=== PATIENT | female | born 1990 | race Two or more races ===

== ENCOUNTER 2024-07-12 22:21 | Observation (INO) | payer MEDICAID, SELFPAY ==
[2024-07-12] VITALS (17 sets, daily range): PULSE 78–96; O2SAT 98–100; BMI 31.4
[2024-07-13] VITALS (128 sets, daily range): BP systolic 90–106; BP diastolic 50–67; PULSE 72–119; RESP 17–18; TEMP 36.6–37; O2SAT 91–100; BMI 31.6
[2024-07-13] MEDS: RINGERS LACTATED 1000 ML 1,000 ML 999 ML IV (00:20)
[2024-07-13] MEDS: BETAMET ACET/BETAMET NA PH (Celestone) 6 MG/ML VIAL 12 MG IM (00:31)
[2024-07-13] MEDS: NIFEdipine 10 MG CAPSULE 20 MG PO (00:32)
[2024-07-13] MEDS: RINGERS LACTATED 1000 ML 1,000 ML 100 ML IV (01:31)
[2024-07-13] MEDS: ACETAMINOPHEN 325 MG TABLET 650 MG PO (01:38)
[2024-07-13 02:16] LABS: Amphetamine/Metham Scrn,Ur OB Negative (Negative); Benzoylecgonine Screen, Ur OB Negative (Negative); Opiate Screen,Urine OB Negative (Negative); THC Screen,Urine OB Negative (Negative)
[2024-07-13 02:19] LABS: Basophils % (Auto) 0 % (0-2.5); Eosinophils % (Auto) 1 % (0-10); Hematocrit 33.5 % (36.0-46.0); Immature Granulocytes % (Auto) 1 % (0-0); Immature Granulocytes Auto 0.04 Thou/mm3 (0.00-0.00); Lymphocytes % (Auto) 27 % (10-50); Mean Corpuscular HGB Conc 32.8 g/dl (31.0-37.0); Mean Corpuscular Volume 79 fL (80-100); Monocytes # (Auto) 0.5 Thou/mm3 (0.0-0.8); Monocytes % (Auto) 7 % (0-12); Neutrophils # (Auto) 4.8 Thou/mm3 (1.8-7.7); Neutrophils % (Auto) 65 % (37-80); Nucleated Red Blood Cell % 0 /100 WBC (0); Platelet Count 133 Thou/mm3 (140-440); RDW Standard Deviation 41.9 fL (36.4-46.3); Red Blood Count 4.23 Miln/mm3 (4.00-5.20); White Blood Count 7.4 Thou/mm3 (3.6-11.0)
[2024-07-13 02:56] LABS: Alanine Aminotransferase 11 U/L (10-49); Albumin/Globulin Ratio 1.5 (1.2-2.2); Alkaline Phosphatase 80 U/L (46-116); Anion Gap 10 (7-16); Aspartate Amino Transferase 26 U/L (0-34); BUN/Creatinine Ratio 15 Ratio (12-20); Bilirubin,Total 0.2 mg/dL (0.3-1.2); Blood Urea Nitrogen 6 mg/dL (9-23); Calcium 8.6 mg/dL (8.3-10.6); Calcium (Corrected) 8.6 mg/dL (8.5-10.1); Carbon Dioxide 19.4 mMol/L (20.0-31.0); Chloride 106 mMol/L (98-107); Creatinine (Component) 0.4 mg/dL (0.6-1.3); Estimated Creatinine Clearance 197.6 mL/min (>60); Globulin 2.6 gm/dL (2.3-3.5); Glucose 84 mg/dL (74-106); Osmolality,Calculated 266 (275-295); Potassium 4.3 mMol/L (3.4-5.1); Sodium 135 mMol/L (136-145); Syphilis Nonreactive (Nonreactive); Total Protein 6.6 gm/dL (5.7-8.2); Uric Acid 2.7 mg/dL (3.1-7.8); eGFR > 60 See Note
[2024-07-13 03:01] LABS: Fibrinogen 585 mg/dL (175-375); INR 0.9 (0.9-1.3); Prothrombin Time 10.4 Seconds (9.0-12.2)
[2024-07-13] MEDS: NIFEdipine 10 MG CAPSULE PO (06:50)
[2024-07-13] MEDS: metFORMIN 500 MG TABLET PO (07:26)
--- NOTE | 2024-07-13 08:21 | PD.LDANTE ---
Documentation for date of: 07/13/24 OB Labor/Induct. HPI History of Present Adequate Care: Yes Meds Home Medications and Allergies Home Medications ?Medication ?Instructions ?Recorded ?Confirmed ?Type metformin 500 mg tablet 500 mg PO BID 07/12/24 07/12/24 History [id number] fum 65 mg 1 pkg PO 1XD 07/12/24 07/13/24 History iron-folic acid 1 mg-dha 250 mg oral hilda Allergies Allergy/AdvReac Type Severity Reaction Status Date / Time No Known Allergies Allergy Verified 07/13/24 02:19 OB Exam Physical Exam Vital signs: Temp Pulse Resp BP Pulse Ox 98.6 F 91 17 90/50 L 91 L 07/13/24 04:53 07/13/24 08:20 07/13/24 04:53 07/13/24 08:20 07/13/24 08:20 OB Results Labs 07/13/24 00:20 07/13/24 00:20 Labs: Short CBC 07/13/24 Range/Units 00:20 WBC 7.4 (3.6-11.0) Thou/mm3 Hgb 11.0 L (12.0-16.0) g/dL Hct 33.5 L (36.0-46.0) % Plt Count 133 L (140-440) Thou/mm3 BMP 07/13/24 00:20 Sodium 135 L Potassium 4.3 Chloride 106 Carbon Dioxide 19.4 L BUN 6 L Creatinine 0.4 L Glucose 84 Calcium 8.6 Liver Function 07/13/24 Range/Units 00:20 Total Bilirubin 0.2 L (0.3-1.2) mg/dL AST 26 (0-34) U/L ALT 11 (10-49) U/L Alkaline Phosphatase 80 (46-116) U/L Albumin 4.0 (3.5-5.0) gm/dL
== END 2024-07-13 10:20 | disposition home or self-care (01) ==
PROVIDERS: Admitting Provider Obstetrics & Gynecology; PCP Family Medicine; Visit Provider Obstetrics & Gynecology
DX: O47.03 False labor before 37 completed weeks of gestation, third trimester (principal); Z3A.31 31 weeks gestation of pregnancy
CPT/HCPCS: 36415; 59025; 59899; 80053; 80307; 84550; 85025; 85384; 85610; 85730; 86780; 86850; 86900; 86901; 96372; J0702; J7120; A9270

== ENCOUNTER 2024-07-13 22:33 | Observation (INO) | payer MEDICAID, SELFPAY ==
[2024-07-13 22:38] VITALS: BP 102/68; PULSE 74
[2024-07-13] MEDS: BETAMET ACET/BETAMET NA PH (Celestone) 6 MG/ML VIAL 12 MG IM (23:14)
== END 2024-07-13 23:18 | disposition home or self-care (01) ==
PROVIDERS: Admitting Provider Obstetrics & Gynecology; Visit Provider Obstetrics & Gynecology
DX: Z34.83 Encounter for supervision of other normal pregnancy, third trimester (principal); Z3A.32 32 weeks gestation of pregnancy
CPT/HCPCS: 59899; 96372; J0702

== ENCOUNTER 2024-07-19 21:07 | Observation (INO) | payer MEDICAID, SELFPAY ==
[2024-07-19 21:16] VITALS: BMI 30.2
[2024-07-19 21:22] VITALS: BP 113/69; PULSE 101; RESP 17; RESP 99; TEMP 36.5
[2024-07-19 21:40] LABS: ROM Kit Lot # 5780505; ROM Swab Mixed By: BDR; Rupture of Fetal Membranes Negative (Negative); Swb Mxed in Solvent 1 min? Yes
[2024-07-19 21:57] VITALS: TEMP 36.5
== END 2024-07-19 22:50 | disposition home or self-care (01) ==
PROVIDERS: Admitting Provider Obstetrics & Gynecology; PCP Family Medicine; Visit Provider Obstetrics & Gynecology
DX: Z34.83 Encounter for supervision of other normal pregnancy, third trimester (principal); Z3A.32 32 weeks gestation of pregnancy
CPT/HCPCS: 59025; 59899; 84112

== ENCOUNTER 2024-07-20 11:35 | Observation (INO) | payer MEDICAID, SELFPAY ==
[2024-07-20] VITALS (150 sets, daily range): BP systolic 91–121; BP diastolic 53–77; PULSE 79–135; RESP 18–99; TEMP 36.6–37.2; O2SAT 96–100; BMI 29.7
--- NOTE | 2024-07-20 11:54 | XR_ITS ---
Examination: Complete OB ultrasound greater than 14 weeks Date and time of exam: July 20, 2024 12:17 PM Indications: Pelvic pain and vaginal bleeding beginning 7:00 AM this morning Findings: Viable intrauterine single fetus with single amniotic sac presentation cephalic spine maternal left Cardiac motion 155 BPM Placenta fundal anterior no placental abruption grade 1 Umbilical cord insertion seen Amniotic fluid index 9.6 cm Cervix 3.1 cm Ovaries obscured by bowel gas. Composite estimated gestational age based on BPD, head circumference, abdominal circumference, femur length is 31 weeks 3 days Estimated weight 1731 g. Survey of intracranial anatomy, spinal anatomy, abdominal anatomy, four-chamber heart performed with no abnormalities identified. Impression: Viable intrauterine gestation cephalic presentation Placenta fundal anterior no abruption Estimated gestational age 31 weeks 3 days.
--- NOTE | 2024-07-20 11:54 | XR_ITS ---
Examination: OB Transvaginal ultrasound of the pelvis, Limited Technique: Transvaginal sonographic images pelvis performed using dhillon scale imaging Exam date and time: July 20, 2024 12:35 PM Indications: Pelvic pain and vaginal bleeding beginning 7:00 AM today Findings: Cervix 3.3 cm closed Impression: Cervix 3.3 cm closed.
[2024-07-20] MEDS: SODIUM CHLORIDE 0.9% 1000 ML 1,000 ML 999 ML IV (12:42)
[2024-07-20 12:50] LABS: Basophils % (Auto) 0 % (0-2.5); Eosinophils % (Auto) 0 % (0-10); Hematocrit 35.9 % (36.0-46.0); Hemoglobin 11.8 g/dL (12.0-16.0); Immature Granulocytes % (Auto) 0 % (0-0); Immature Granulocytes Auto 0.03 Thou/mm3 (0.00-0.00); Lymphocytes # (Auto) 1.3 Thou/mm3 (1.0-4.8); Lymphocytes % (Auto) 19 % (10-50); Mean Corpuscular HGB Conc 32.9 g/dl (31.0-37.0); Mean Corpuscular Volume 79 fL (80-100); Monocytes # (Auto) 0.4 Thou/mm3 (0.0-0.8); Monocytes % (Auto) 6 % (0-12); Neutrophils % (Auto) 74 % (37-80); Nucleated Red Blood Cell % 0 /100 WBC (0); Platelet Count 208 Thou/mm3 (140-440); RDW Standard Deviation 42.9 fL (36.4-46.3); Red Blood Count 4.54 Miln/mm3 (4.00-5.20); White Blood Count 6.7 Thou/mm3 (3.6-11.0)
[2024-07-20] MEDS: RINGERS LACTATED 1000 ML 1,000 ML 125 ML IV (15:22)
[2024-07-20] MEDS: ACETAMINOPHEN IVPB 1,000 MG/100 ML VIAL 250 MG IV ×2 (15:22→22:58)
--- NOTE | 2024-07-20 16:22 | PD.LDANTE ---
Documentation for date of: 07/20/24 OB Labor/Induct. HPI History of Present Illness : 2 Para: 1 Term pregnancies: 0 pregnancies: 1 Living children: 1 History of Abortions: Spontaneous and Elective: 0 History of Vaginal deliveries: 1 History of sections: No History of : No Date of last menstrual period: 12/02/23 SAV: 09/07/24 Gestational age based on last menstrual period: 33 History of present illness: The patient presents to labor and delivery triage with complaints of contractions and a few episodes of vaginal spotting. She is very concerned due to her history of delivery in the past. She reports contractions every 2 to 4 minutes and good movements. The patient has been seen in triage very frequently in the recent last one to 2 weeks, with the most recent admission being yesterday, where she was monitored with no cervical change and discharged home. She has no other complaints other than those stated above. The patient is being treated as a gestational diabetic. She has been receiving care at [facility]. Diagnostic Test Results and Labs: - Initial labs (04-05-2024): Blood group: A positive Antibody screen: negative HIV screening: negative Hepatitis B: negative Hepatitis C: negative Rubella: immune RPR: nonreactive Urine culture: positive for group B streptococcus - Hemoglobin A1C (04-02-2024): 5.3 - Toxicology screen (Date N/A): negative - NIPT (Date N/A): negative x3, male gender - 2-hour glucose tolerance test (Date N/A): elevated at 156 - Anatomy ultrasound (05-07-2024): Estimated gestational age: consistent with dates Normal anatomy survey Cervical length: >4 cm, no funneling Placenta: fundal, no previa, no abnormalities noted - Blood glucose on admission: 149 History of Present Adequate Care: Yes Review of Systems Review of Systems Systems Reviewed: All systems reviewed, normal except as documented Past Medical History Surgical History SURGICAL: Negative Section Meds Home Medications and Allergies Home Medications ?Medication ?Instructions ?Recorded ?Confirmed ?Type metformin 500 mg tablet 500 mg PO BID 07/12/24 07/19/24 History [id number] fum 65 mg 1 pkg PO 1XD 07/12/24 07/19/24 History iron-folic acid 1 mg-dha 250 mg oral hilda Allergies Allergy/AdvReac Type Severity Reaction Status Date / Time No Known Allergies Allergy Verified 07/19/24 21:47 OB Exam Physical Exam Vital signs: Temp Pulse Resp BP Pulse Ox 98.9 F 82 18 105/64 99 07/20/24 12:23 07/20/24 15:31 07/20/24 12:23 07/20/24 15:31 07/20/24 16:17 Constitutional Constitutional: no acute distress Routine HEENT Exam Head: Present normocephalic and atraumatic Eye: Present EOMI and PERRL ENT: Present mucous membranes moist Routine Neck Exam Neck: Present supple and trachea midline Routine Cardiovascular Exam Cardiovascular: Present RRR Routine Abdominal Exam Abdominal: Present soft and normoactive bowel sounds Detailed Labor and Delivery Exam Comments: Physical Examination: - Cervical exam: 2 to 3 cm dilated, thick - station: high - monitoring: baseline heart rate 145 with accelerations and no decelerations - Contractions: irregular, occurring every 2 to 5 minutes Routine Extremities Exam Extremities: Present full ROM Routine Skin Exam Skin: Present intact, dry and warm Routine Neurological Exam Neurological: Present alert, oriented X3 and CN II-XII intact Routine Psychiatric Exam Psychiatric: Present normal affect and normal thought process OB Results Labs 07/20/24 12:15 Labs: Short CBC 07/20/24 Range/Units 12:15 WBC 6.7 (3.6-11.0) Thou/mm3 Hgb 11.8 L (12.0-16.0) g/dL Hct 35.9 L (36.0-46.0) % Plt Count 208 D (140-440) Thou/mm3 OB Assessment & Plan Assessment and Plan (1) Threatened labor, antepartum: Status: Acute Assessment and plan: Contractions and Threatened Delivery: - Place patient under observation with continuous monitoring. - Administer IV hydration and tocolysis with terbutaline. - Manage pain with IV acetaminophen. - Monitor inpatient for 23 hours, recheck cervix as needed. - Start GBS prophylaxis if active labor occurs. - Current cervical exam: 2-3 cm dilated, thick, high station. - monitoring: baseline 145, with accelerations, no decelerations. - Contractions irregular, every 2-5 minutes. Gestational Diabetes: - Resume home metformin during admission. - Place patient on diabetic diet. - Monitor fingerstick blood glucose levels. - Admission fingerstick blood glucose: 149. Group B Streptococcus Positive: - Start GBS prophylaxis if active labor occurs. - Positive urine culture for GBS. Lung Maturity: - Patient has received betamethasone for lung maturity. History of Delivery: - Closely monitor for signs of labor. - Previous delivery at 32 weeks in 2021.
[2024-07-20] MEDS: TERBUTALINE SULF INJ 1 MG/ML VIAL 0.25 MG SC (17:01)
[2024-07-20] MEDS: metFORMIN 500 MG TABLET PO (19:07)
[2024-07-20] MEDS: SODIUM CHLORIDE 0.9% 1000 ML 1,000 ML 125 ML IV (19:07)
[2024-07-21] VITALS (101 sets, daily range): BP systolic 88–124; BP diastolic 52–78; PULSE 67–147; O2SAT 92–100
[2024-07-21] MEDS: SODIUM CHLORIDE 0.9% 1000 ML 1,000 ML 125 ML IV (03:52)
[2024-07-21] MEDS: ACETAMINOPHEN IVPB 1,000 MG/100 ML VIAL 250 MG IV (05:18)
[2024-07-21] MEDS: TERBUTALINE SULF INJ 1 MG/ML VIAL 0.25 MG SC (06:08)
[2024-07-21] MEDS: metFORMIN 500 MG TABLET PO (07:14)
[2024-07-21] MEDS: NIFEdipine 10 MG CAPSULE PO (11:35)
== END 2024-07-21 11:35 | disposition home or self-care (01) ==
PROVIDERS: Admitting Provider Obstetrics & Gynecology; Visit Provider Obstetrics & Gynecology
DX: O60.03 Preterm labor without delivery, third trimester (principal); O24.410 Gestational diabetes mellitus in pregnancy, diet controlled; O98.813 Other maternal infectious and parasitic diseases complicating pregnancy, third trimester; B95.1 Streptococcus, group B, as the cause of diseases classified elsewhere; O99.820 Streptococcus B carrier state complicating pregnancy; Z3A.31 31 weeks gestation of pregnancy
CPT/HCPCS: 36415; 59899; 76805; 76817; 85025; 96361; 96365; 96372; J0131; J3105; J7030; J7120; A9270

== ENCOUNTER 2024-07-23 11:55 | Outpatient (CLI) | payer MEDICAID, SELFPAY ==
[2024-07-23] VITALS (42 sets, daily range): BP systolic 108; BP diastolic 70; PULSE 72–143; RESP 18–99; TEMP 36.8; O2SAT 92–100; BMI 30.1
[2024-07-23] MEDS: RINGERS LACTATED 1000 ML 1,000 ML 999 ML IV (12:37)
[2024-07-23 12:57] LABS: Basophils % (Auto) 0 % (0-2.5); Eosinophils % (Auto) 0 % (0-10); Hematocrit 34.4 % (36.0-46.0); Hemoglobin 11.5 g/dL (12.0-16.0); Immature Granulocytes % (Auto) 0 % (0-0); Immature Granulocytes Auto 0.03 Thou/mm3 (0.00-0.00); Lymphocytes # (Auto) 1.6 Thou/mm3 (1.0-4.8); Lymphocytes % (Auto) 23 % (10-50); Mean Corpuscular HGB Conc 33.4 g/dl (31.0-37.0); Mean Corpuscular Hemoglobin 26.7 pg (25.0-35.0); Mean Corpuscular Volume 80 fL (80-100); Monocytes # (Auto) 0.4 Thou/mm3 (0.0-0.8); Monocytes % (Auto) 5 % (0-12); Neutrophils # (Auto) 5.2 Thou/mm3 (1.8-7.7); Neutrophils % (Auto) 72 % (37-80); Nucleated Red Blood Cell % 0 /100 WBC (0); Platelet Count 209 Thou/mm3 (140-440); RDW Standard Deviation 42.9 fL (36.4-46.3); Red Blood Count 4.31 Miln/mm3 (4.00-5.20); White Blood Count 7.2 Thou/mm3 (3.6-11.0)
[2024-07-23 13:01] LABS: Collection Type, Urine Clean Catch
[2024-07-23 13:10] LABS: Bilirubin,Urine Negative (Negative); Blood,Urine 1+ (Negative); Clarity,Urine Clear (Clear/Hazy); Color,Urine Yellow (Lt Yel-Yel); Glucose, Urine Negative (Negative); Ketones,Urine Negative (Negative); Leukocyte Esterase,Urine 1+ (Negative); Nitrite,Urine Negative (Negative); PH,Urine 6.5 (5.0-7.0); Protein,Urine Trace (Neg - Trace); Urobilinogen,Urine 0.2 mg/dL (0.0-1.0)
[2024-07-23 13:11] LABS: Bacteria,Urine 1+; RBC,Urine 7 /hpf (0-3); Squamous Epithelial Cell,Urine 2 /hpf (0-5); WBC,Urine 7 /hpf (0-5)
--- NOTE | 2024-07-23 13:45 | XR_ITS ---
Examination: Biophysical profile, ultrasound Date and time of exam: July 23, 2024 1432 hours contractions beginning 10 days ago Technique: Multiple transabdominal sonographic images of the pelvis abdomen obtained. Attention is directed to the breathing movement, gross body movement, amniotic fluid volume and tone. Findings: Amniotic fluid index 10.8 cm Total biophysical profile is 8 of 8. breathing movement is 2. Gross body movement is 2. tone is 2. Qualitative amniotic fluid volume is 2 Impression: Biophysical profile is 8 of 8.
== END 2024-07-23 15:35 | disposition home or self-care (01) ==
LOC: S4S1 11:56 → S4SX 14:17
PROVIDERS: Referring Provider Obstetrics & Gynecology; Visit Provider Obstetrics & Gynecology
DX: O26.893 Other specified pregnancy related conditions, third trimester (principal); M54.50 Low back pain, unspecified; R25.2 Cramp and spasm; Z3A.33 33 weeks gestation of pregnancy
CPT/HCPCS: 36415; 59025; 76819; 81001; 85025; J7120

== ENCOUNTER 2024-08-17 12:14 | Outpatient (RCR) | payer MEDICAID, SELFPAY ==
--- NOTE | 2024-07-27 11:28 | XR_ITS ---
Examination: Biophysical profile, ultrasound Date and time of exam: July 27, 2024 1141 hrs. Indications: Diagnosis gestational diabetes Technique: Multiple transabdominal sonographic images of the pelvis abdomen obtained. Attention is directed to the breathing movement, gross body movement, amniotic fluid volume and tone. Findings: Adequate fluid index 12.0 cm Total biophysical profile is 8 of 8. breathing movement is 2. Gross body movement is 2. tone is 2. Qualitative amniotic fluid volume is 2 Impression: Biophysical profile is 8 of 8.
[2024-07-27 12:39] VITALS: BP 113/74; PULSE 116; RESP 18; TEMP 36.9
--- NOTE | 2024-08-03 11:07 | XR_ITS ---
Examination: Biophysical profile, ultrasound Date and time of exam: August 03, 2024 1127 hours INDICATIONS: Diagnosis gestational diabetes, secondary diagnosis pelvic lower back pain beginning today Technique: Multiple transabdominal sonographic images of the pelvis abdomen obtained. Attention is directed to the breathing movement, gross body movement, amniotic fluid volume and tone. Findings: Amniotic fluid index 12 cm Total biophysical profile is 8 of 8. breathing movement is 2. Gross body movement is 2. tone is 2. Qualitative amniotic fluid volume is 2 Impression: Biophysical profile is 8 of 8.
[2024-08-03 11:59] VITALS: BP 116/77; PULSE 108; RESP 18; TEMP 36.7
--- NOTE | 2024-08-10 11:03 | XR_ITS ---
Examination: Biophysical profile, ultrasound Date and time of exam: August 10, 2024 1139 hours INDICATIONS: Diagnosis gestational diabetes, onset pelvic and lower back pain today Technique: Multiple transabdominal sonographic images of the pelvis abdomen obtained. Attention is directed to the breathing movement, gross body movement, amniotic fluid volume and tone. Findings: Amniotic fluid index 15. CM Total biophysical profile is 8 of 8. breathing movement is 2. Gross body movement is 2. tone is 2. Qualitative amniotic fluid volume is 2 Impression: Biophysical profile is 8 of 8.
[2024-08-10 12:06] VITALS: BP 105/68; PULSE 85; RESP 18; TEMP 36.9
--- NOTE | 2024-08-17 12:26 | XR_ITS ---
Examination: Biophysical profile, ultrasound Date and time of exam: August 17, 2024 1244 hours INDICATIONS: Diagnosis gestational diabetes insulin controlled, diagnosis pelvic pain and pressure beginning 2 weeks ago Technique: Multiple transabdominal sonographic images of the pelvis abdomen obtained. Attention is directed to the breathing movement, gross body movement, amniotic fluid volume and tone. Findings: Amniotic fluid index 12.0 cm Total biophysical profile is 8 of 8. breathing movement is 2. Gross body movement is 2. tone is 2. Qualitative amniotic fluid volume is 2 Impression: Biophysical profile is 8 of 8.
[2024-08-17 13:31] VITALS: BP 110/72; PULSE 96; RESP 18; TEMP 36.8
== END 2024-08-17 23:59 | disposition home or self-care (01) ==
LOC: S4S1 12:14
PROVIDERS: Referring Provider Nurse Practitioner Women's Health; Visit Provider Nurse Practitioner Women's Health
DX: O24.415 Gestational diabetes mellitus in pregnancy, controlled by oral hypoglycemic drugs (principal); Z3A.36 36 weeks gestation of pregnancy
CPT/HCPCS: 59025; 76819

== ENCOUNTER 2024-08-21 22:31 | Inpatient (IN) | payer MEDICAID, SELFPAY ==
[2024-08-21] VITALS (14 sets, daily range): BP systolic 112; BP diastolic 72; PULSE 69–104; RESP 16–99; O2SAT 99–100; BMI 31.0
--- NOTE | 2024-08-21 23:01 | PD.LDHP ---
Documentation for date of: 08/21/24 OB Labor/Induct. HPI History of Present Illness Chief complaint: 33 y/o 37w 4d presents to L&D in early labor ravi 2-4 minutes : 2 Para: 1 Term pregnancies: 0 pregnancies: 1 Living children: 1 History of Abortions: Spontaneous and Elective: 0 History of Vaginal deliveries: 1 History of sections: No History of : No SAV: 09/07/24 Gestational Age (weeks): 37 Gestational Age (days): 4 History of present illness: 33 y/o 37w 4d presents to L&D in early labor ravi 2-4 minutes, fetus had a variable deceleration in triage, cervix is 2/70/-3, RN unsure of presentation. Pt's has been complicated by GDM-diet control. BS have been good. GBS is neg. Pt yi a hx of nvdx1. EFW 3000g History of Present Dating criteria: LMP confirmed by 1st trimester US Adequate Care: Yes Ultrasounds: normal 1st trimester US and normal mid trimester US Obstetrical complications: gestational diabetes (Diet control) Labs Maternal Blood Type: A Pos Labs: Positive: Rubella Titre, Negative: RPR, Hepatitis B, HIV, Chlamydia, Gonorrhea and Group Beta Strep and Unknown: Herpes Type 1, Herpes Type 2 and Covid-19 Review of Systems Review of Systems Systems Reviewed: All systems reviewed, normal except as documented Past Medical History Surgical History SURGICAL: Negative Section Meds Home Medications and Allergies Home Medications ?Medication ?Instructions ?Recorded ?Confirmed ?Type metformin 500 mg tablet 500 mg PO BID 07/12/24 08/22/24 History [id number] fum 65 mg 1 pkg PO 1XD 07/12/24 08/22/24 History iron-folic acid 1 mg-dha 250 mg oral hilda folic acid 1 mg tablet 1 mg PO DAILY 08/22/24 08/22/24 History Allergies Allergy/AdvReac Type Severity Reaction Status Date / Time No Known Allergies Allergy Verified 08/22/24 00:00 OB Exam Physical Exam Vital signs: Pulse BP Pulse Ox 89 112/72 100 08/21/24 22:35 08/21/24 22:35 08/21/24 22:56 Constitutional Constitutional: moderate distress (secondary to painful contractions) Routine HEENT Exam Head: Present normocephalic and atraumatic Eye: Present EOMI, PERRL and normal accommodation ENT: Present mucous membranes moist Routine Neck Exam Neck: Present supple, full ROM and trachea midline Routine Respiratory Exam Respiratory: Absent respiratory distress Routine Cardiovascular Exam Cardiovascular: Present RRR Routine Abdominal Exam Abdominal: Present soft and normoactive bowel sounds Comments: Gravid Uterus EFW 3000g Routine Exam Patient deferred: external exam Detailed Labor and Delivery Exam Dilation (cm): 2 Effacement (%): 70 Cervix position: posterior station: -3 Consistency: soft Presentation: unsure Membranes: intact Baseline heart rate: 130 monitor accelerations: 15x15 monitor decelerations: Variable shelter variability: Moderate (11-25) Contraction frequency (min): 2-3 Tachysystole: No Contraction intensity: Moderate Routine Extremities Exam Extremities: Present full ROM Routine Back/Spine/Pelvis Exam Back/Spine: Present full ROM Routine Skin Exam Skin: Present intact, dry and warm Routine Neurological Exam Neurological: Present alert, oriented X3 and CN II-XII intact Routine Psychiatric Exam Psychiatric: Present normal affect and normal thought process OB Results Labs 08/22/24 08:30 OB Assessment & Plan Assessment and Plan (1) Normal labor: Status: Acute (2) Gestational diabetes mellitus (GDM) in third trimester controlled on oral hypoglycemic drug: Status: Acute (3) 37 weeks gestation of : Status: Acute Additional Plan Induction method: none Plan: augmentation, anticipate NVD and consult prn Additional Plan Comment: Routine admit orders Continue Metformin BID BS checks Q4 hr Ordered US for presentation and EFW Consult anesthesia for an epidural Expectant mgt Dr. Brandon updated
[2024-08-22] VITALS (55 sets, daily range): BP systolic 97–148; BP diastolic 62–92; PULSE 72–144; RESP 16–18; TEMP 36.2–36.9; O2SAT 92–100
--- NOTE | 2024-08-22 | XR_ITS ---
Examination: Complete OB ultrasound greater than 14 weeks Date and time of exam: August 22, 2024 0020 hrs. Indications: Pelvic contractions beginning 8:00 PM last night, deceleration, diagnosis gestational diabetes Findings: Viable intrauterine single fetus with single amniotic sac presentation cephalic spine anterior Cardiac motion 150 BPM Placenta anterior grade 3 Umbilical cord insertion seen Amniotic fluid index 14.5 cm Ovaries obscured by bowel gas. Composite estimated gestational age based on BPD, head circumference, abdominal circumference, femur length is 34 weeks 1 day Estimated weight 2338 g. Survey of intracranial anatomy, spinal anatomy, abdominal anatomy, four-chamber heart performed with no abnormalities identified. Impression: Viable intrauterine gestation cephalic presentation Estimated gestational age 34 weeks 1 day.
--- NOTE | 2024-08-22 | XR_ITS ---
Examination: Biophysical profile, ultrasound Date and time of exam: August 22, 2024 at 0036 hrs. Indications: Pelvic contractions beginning 8:00 AM last evening Technique: Multiple transabdominal sonographic images of the pelvis abdomen obtained. Attention is directed to the breathing movement, gross body movement, amniotic fluid volume and tone. Findings: Amniotic fluid index 9.3 cm Total biophysical profile is 8 of 8. breathing movement is 2. Gross body movement is 2. tone is 2. Qualitative amniotic fluid volume is 2 Impression: Biophysical profile is 8 of 8.
[2024-08-22] MEDS: TERBUTALINE SULF INJ 1 MG/ML VIAL 0.25 MG SC (00:06)
[2024-08-22] MEDS: RINGERS LACTATED 1000 ML 1,000 ML 100 ML IV (00:09)
[2024-08-22 00:11] LABS: Basophils % (Auto) 0 % (0-2.5); Eosinophils % (Auto) 0 % (0-10); Hemoglobin 12.2 g/dL (12.0-16.0); Immature Granulocytes % (Auto) 0 % (0-0); Immature Granulocytes Auto 0.02 Thou/mm3 (0.00-0.00); Lymphocytes # (Auto) 2.1 Thou/mm3 (1.0-4.8); Lymphocytes % (Auto) 28 % (10-50); Mean Corpuscular Hemoglobin 26.2 pg (25.0-35.0); Mean Corpuscular Volume 79 fL (80-100); Monocytes # (Auto) 0.5 Thou/mm3 (0.0-0.8); Monocytes % (Auto) 7 % (0-12); Neutrophils # (Auto) 4.8 Thou/mm3 (1.8-7.7); Neutrophils % (Auto) 65 % (37-80); Nucleated Red Blood Cell % 0 /100 WBC (0); Platelet Count 210 Thou/mm3 (140-440); RDW Standard Deviation 41.9 fL (36.4-46.3); Red Blood Count 4.66 Miln/mm3 (4.00-5.20); White Blood Count 7.5 Thou/mm3 (3.6-11.0)
[2024-08-22 00:23] LABS: Syphilis Nonreactive (Nonreactive)
--- NOTE | 2024-08-22 01:33 | PRELIM_ITS ---
Obstetric ultrasound August 22, 2024 0036 hoursClinical history: Decerlerations.Findings:There is a gravid uterus with a live fetus in cephalic presentation of mean gestational age 34 weeks and 1 days (by biometry). cardiac activity is present at a heart rate of 158 beats per minute. The p lacenta is anterior in location, maturity grade 3. There is no evidence of placenta previa or retropl acental hemorrhage. Amniotic fluid is adequate NEYMAR = 14.5 cm (MVP 6.76 cm). Estimated weight is 2338.4 grams+/- 346 grams. Estimated due date by ultrasound is 10/02/2024.The cervical length is not visualized due to head.Both ovaries are obscured by bowel gas.Impression:Gravid uterus with a single live fetus in cephalic presentation of mean gestational age 34 weeks 1 days. Report Electronic ally Signed By: Franky Jimenez 08/22/2024 1:33:26 AM [EST]
--- NOTE | 2024-08-22 01:33 | PRELIM_ITS ---
Obstetric ultrasound August 22, 2024 0036 hoursClinical history: Decerlerations.Findings:There is a gravid uterus with a live fetus in cephalic presentation. cardiac activity is present at a hear t rate of 145 beats per minute. The placenta is anterior in location, maturity grade 3. There is no e vidence of placenta previa or retroplacental hemorrhage. Amniotic fluid is adequate NEYMAR = 9.3 cm (MVP 3.17 cm).Biophysical Profile:Breathing : 2Tone : 2Amniotic fluid : 2Movement : 2BPP Score: 8/8Impres mike:Gravid uterus with a single live fetus in cephalic presentation.Normal biophysical profile as recorded by the lead cytogenetic technologist. Report Electronically Signed By: Franky Jimenez 08/22/2024 1 :33:32 AM [EST]
[2024-08-22] MEDS: ceFAZolin/D5W 2 GM IV 2 GM/100 ML BAG IV (02:28)
[2024-08-22] MEDS: FAMOTIDINE INJ 10 MG/ML VIAL 2 ML 20 MG IV (02:31)
[2024-08-22] MEDS: CITRIC ACID/SODIUM CITR 15 ML UDC (BICITRA) 30 ML PO (02:32)
--- NOTE | 2024-08-22 03:36 | PD.LDPN ---
Documentation for date of: 08/22/24 OB Labor Progress Note Pain Control Comments: epidural Pelvic Exam Dilation (cm): 3 Effacement (%): 70 station: -3 Comments: Anuja was admitted at around 2236 , with contractions at 37w4d and 2 cm dilation and an IOL was planned by [facility] for a non reactive NST. starting 11.30 anuja had recurrent variable deceleration , which responded to position changes. At 2254 prolonged decle for 2 minutes , FHR went from 150 to 60. The variables continued were deep and associated with tachysystole. Anuja was given terbutaline , whoch resolved the decelerations. 2348 to 1 am, variability minimal, ( had variable deep decel non recurrent again responding to position changes ) called by [facility] RN at 2 am as [facility] anuja started having variable decel deep to 60 from 160 baseline.along with late deceleration. at 2 12 AM, anuja again had a prolonged decel for 3 minutes down to 60 bpm. variability has been minimal most of the time , Contractions Contraction frequency: 2-3 Contraction intensity: Moderate Status Comments: cat2 fht non resolving with positionnchange Assessment and Plan Comments: Anuja was offerd a Csection at this point Patient was also given expectant option of AROM and continuing with labor Anuja was explained risk and benefits
[2024-08-22] MEDS: DiphenhydrAMINE INJ 50 MG/ML VIAL 12.5 MG IVP (04:43)
[2024-08-22] MEDS: KETOROLAC INJ 30 MG/ML VIAL IVP (05:46)
[2024-08-22 08:52] LABS: Basophils % (Auto) 0 % (0-2.5); Eosinophils % (Auto) 0 % (0-10); Hematocrit 32.2 % (36.0-46.0); Hemoglobin 10.5 g/dL (12.0-16.0); Immature Granulocytes % (Auto) 0 % (0-0); Immature Granulocytes Auto 0.02 Thou/mm3 (0.00-0.00); Lymphocytes # (Auto) 1.3 Thou/mm3 (1.0-4.8); Lymphocytes % (Auto) 18 % (10-50); Mean Corpuscular HGB Conc 32.6 g/dl (31.0-37.0); Mean Corpuscular Hemoglobin 26.1 pg (25.0-35.0); Mean Corpuscular Volume 80 fL (80-100); Monocytes # (Auto) 0.4 Thou/mm3 (0.0-0.8); Monocytes % (Auto) 6 % (0-12); Neutrophils # (Auto) 5.5 Thou/mm3 (1.8-7.7); Neutrophils % (Auto) 76 % (37-80); Nucleated Red Blood Cell % 0 /100 WBC (0); Platelet Count 167 Thou/mm3 (140-440); Red Blood Count 4.02 Miln/mm3 (4.00-5.20); White Blood Count 7.3 Thou/mm3 (3.6-11.0)
[2024-08-22] MEDS: HYDROcodone/APAP 5/325 TABLET 2 TAB PO ×2 (10:52→18:19)
[2024-08-22] MEDS: IBUPROFEN TAB 400 MG TABLET 800 MG PO ×2 (14:45→22:49)
--- NOTE | 2024-08-22 15:22 | OBDSUM_ITS ---
Data ([facility]) Data Hx Section: No : 2 Para: 1 Term: 0 : 1 : 0 Delivery Data ([facility]) Labor Data ROM Date: 08/22/24 ROM Time: 02:42 Rupture Type: AROM Amniotic Fluid: Clear Delivery Data Labor Onset Stage 1 Date: 08/21/24 Labor Onset Stage 1 Time: 20:00 Delivery Date: 08/22/24 Delivery Time: 02:43 Gestational age (weeks): 37 Gestational age (days): 4 Placenta Delivery Date: 08/22/24 Placenta Delivery Time: 02:44 Delivered by: Tina Brandon Delivery nurse: Katie Morgan Other staff at delivery: Baby Care/Compound Mixer Other staff at delivery: Jde Developer Other staff at delivery: Recruiter Account Manager Other staff at delivery: RT Other staff at delivery: Rivka Vaughan Other staff at delivery: MD Godoy Omid Other staff at delivery: Jany MAX Other staff at delivery: Thom Delivery Method Delivery: Delivery Type: Primary Presentation: Vertex Anesthesia Type Primary Anesthesia: Epidural Placenta Placenta Delivery: Manual Placenta Sent for Examination: Yes Cord Sample: Cord Blood Obtained and Cord Gases Arterial EBL Estimated blood loss (ml): 200 Umbilical Cord Umbilical Vessels: 3 Nuchal Cord: x1 Body Cord: x1 Data ([facility]) Data Infant Gender: Male Weight Grams: 2335 1 Minute Total: 9 5 Minute Total: 9
--- NOTE | 2024-08-22 15:26 | ESOP_ITS ---
Operative Note - ASSOCIATE PROFESSOR OF ANTHROPOLOGY Procedure Date of procedure: 08/22/24 Procedure Performed: primary low transverse Csection Indication: category 2 FHT Non responsive to resuscitation Pre-Op diagnosis: same Post-Op diagnosis: IUGR Anesthesia type: Epidural Procedure description: Informed consent was obtained and the patient was taken to the operating room.? Identity was confirmed by double identifiers and she was placed on the operating table.The abdomen and perineum were prepped in the usual sterile fashion and a Trejo catheter was placed to continuous drainage.? Sterile drapes were applied.??A Pfannenstiel skin incision was made with a scalpel and carried to the subcutaneous fat up to the rectus fascia.? The rectus fascia was incised on either side of the midline and the incisions were extended bilaterally.? The fascia was gently dissected off the ventral surface of the rectus muscle both superiorly and inferiorly. Carefully a peritioneal window craeted hysterotomy incision made and extended bluntly with finger. Rupture of membranes revealed clear fluid. The baby was found in cephalic position delivered via vertex. The umbilical cord , was doubly clamped, divided and the infant was handed over to the waiting team.? placenta delivered by controlled cord traction . The interior of the uterus was now thorougly cleaned of all blood and debris and membranes.? 2 cavities and the uterus verified the? hysterotomy was closed using 0 vicryl suture in double layers. Once the repair was completed the hysterotomy was inspected, was noted to be adequately hemostatic . Muscle oozing stopped by bovie. The rectus fascia was repaired using Vicry 0 in a running fashion.? The subcutaneous layer was now, approximated with 3-0 vicryl in double layers.? All bleeding points were cauterized using the Bovie.?The skin was closed using 4-0 Monocryl in a subcuticular fashion.? The skin was cleaned and a sterile dressing was applied. The patient was now undraped, the abdomen and back were thoroughly cleaned and she was now transferred to the recovery room in a stable Estimated blood loss (ml): 200 Surgical staff Operation Date: 08/22/24 02:30 Case Staff INSIDE SALES TERRITORY MANAGER: Anthony Conner RNcollar worker: Jany Sneed Diagnosis Problem List Completed Was Problem List Reviewed/Reconciled?: Yes
[2024-08-22] MEDS: DOCUSATE SOD 100 MG CAPSULE PO (22:48)
[2024-08-22] MEDS: SIMETHICONE 80 MG CHEW PO (22:49)
[2024-08-23] MEDS: HYDROcodone/APAP 5/325 TABLET 2 TAB PO ×4 (00:55→21:26)
[2024-08-23 04:00] VITALS: BP 116/73; PULSE 85; RESP 17; TEMP 37.2; O2SAT 99
[2024-08-23 07:20] VITALS: BP 97/67; PULSE 95; RESP 17; TEMP 36.9; O2SAT 99
[2024-08-23] MEDS: Milk Of Magnesia Susp 30 ML UDC PO (08:33)
[2024-08-23] MEDS: SIMETHICONE 80 MG CHEW PO ×2 (08:34→15:09)
[2024-08-23] MEDS: DOCUSATE SOD 100 MG CAPSULE PO (08:34)
--- NOTE | 2024-08-23 10:22 | ESPR_ITS ---
Subjective Subjective Interval history: Patient is a 33-year-old -1-0-1 status post primary . She is postop day #1. Her was for distress. In general patient is alert and oriented she is having significant gas pain and has barely passed flatus. She told me her heart her spinal did not work during surgery and sounds like she might of had to have general anesthesia. Patient is breast-feeding. She requests a note for her in [place] that he can come help take care of her and I will accommodate this. The plan today is to increase diet have her ambulate and hopefully she will pass more flatus. Milk of magnesia and Colace was ordered. Exam Vital Signs Temp Pulse Resp BP Pulse Ox O2 Del Method 98.5 F 95 17 97/67 99 Room Air 08/23/24 07:20 08/23/24 07:20 08/23/24 07:20 08/23/24 07:20 08/23/24 07:20 08/23/24 07:20 Narrative Exam Abdomen soft slightly distended and tympanitic. Incision is clean dry and intact extremities show no cyanosis clubbing or edema Objective Labs 08/22/24 08:30 Assessment & Plan Problem List (1) Normal labor: Status: Acute (2) Gestational diabetes mellitus (GDM) in third trimester controlled on oral hypoglycemic drug: Status: Acute (3) 37 weeks gestation of : Status: Acute Assessment Comment Assessment comment: Postoperative day #1 status post primary for intolerance to labor. Patient is stable. Plan is to advance diet as tolerated increased ambulation potential discharge home postoperative day #2. Plan Comment Plan Comment: Advance diet as tolerated milk of magnesia and Colace for constipation and gas pain. Consider suppository if needed. Time Spent With Patient Time: Total time spent is greater than 50% in coordination of care (as documented) at patient's floor/unit and/or counseling patient:
[2024-08-23 11:30] VITALS: BP 109/72; PULSE 96; RESP 18; TEMP 37.1; O2SAT 98
[2024-08-23] MEDS: IBUPROFEN TAB 400 MG TABLET 800 MG PO ×2 (11:39→20:05)
[2024-08-23 21:06] VITALS: BP 112/71; PULSE 89; RESP 18; TEMP 36.9; O2SAT 98
[2024-08-24 00:15] VITALS: BP 103/69; PULSE 77; RESP 18; TEMP 36.7; O2SAT 98
[2024-08-24] MEDS: HYDROcodone/APAP 5/325 TABLET 2 TAB PO (03:05)
[2024-08-24] MEDS: IBUPROFEN TAB 400 MG TABLET 800 MG PO (07:32)
--- NOTE | 2024-08-24 08:06 | PD.LDDS ---
DS: Providers Provider Date of admission: 08/21/24 23:06 Primary care physician: Physician No Primary/Family Admitting Provider: Isabel Crowe CNM Attending Provider on Admission: Tina Brandon MD Consults: 08/22/24 03:09 Referral Routine Comment: Attending Provider on DC: Tina Brandon MD Discharging Provider: Tina Brandon MD DS: Diagnosis Problem List Completed Was Problem List Reviewed/Reconciled?: Yes Summary/Hosp Course Brief History: 33 y/o G2P 2 s/p primary low-transverse for category 2 heart tones, postop day 2 has been doing well denies any fever, vaginal bleeding, pain. Has passed gas. Peripartum Data Procedures: Procedures Operation Date: 08/22/24 02:30 Actual Procedure Side Surgeon p in OB Not Applicable Tina Brandon MD Time Spent with Patient Time attestation: Total time spent providing and/or coordinating discharge services: Exam Vital Signs Temp Pulse Resp BP Pulse Ox O2 Del Method 98.1 F 77 18 103/69 98 Room Air 08/24/24 00:15 08/24/24 00:15 08/24/24 00:15 08/24/24 00:15 08/24/24 00:15 08/24/24 00:15 Constitutional Constitutional: no acute distress Routine HEENT Exam Head: Present normocephalic and atraumatic Eye: Present EOMI and PERRL ENT: Present mucous membranes moist Routine Neck Exam Neck: Present supple and trachea midline Routine Respiratory Exam Respiratory: Present chest non-tender, lungs clear, normal breath sounds and no resp distress Routine Cardiovascular Exam Cardiovascular: Present RRR Routine Abdominal Exam Abdominal: Present soft and normoactive bowel sounds Routine Extremities Exam Extremities: Present full ROM Routine Skin Exam Skin: Present intact, dry and warm Routine Neurological Exam Neurological: Present alert, oriented X3 and CN II-XII intact Routine Psychiatric Exam Psychiatric: Present normal affect and normal thought process Discharge Plan Plan Patient Disposition: HOME (Self Care) Prescriptions/Referrals Prescriptions/Med Rec: New acetaminophen-codeine 300-15 mg tablet 1 tab PO Q12H PRN (Reason: pain) Qty: 14 0RF ibuprofen 800 mg tablet 800 mg PO Q8H PRN (Reason: pain) Qty: 20 0RF No Action vit 59-[id number]-[id number]-dha 65-1-250 mg Combo Pack 1 pkg PO 1XD metformin 500 mg Tablet 500 mg PO BID folic acid 1 mg tablet 1 mg PO DAILY Patient Comments: take 1 tablet by mouth once daily Referrals: No Primary/Family,Physician [Primary Care Provider] - Patient/Caregiver Discharge Instructions Education Materials: C Section Dc Print Language: Greenlandic Stand Alone Forms: [employer] Award Info., Patient Portal Info Letter Discharge Order Discharge Orders: Discharge (Routine); Ordered 08/24/24 Ordered By: Tina Brandon Planned Discharge Date 08/24/24
--- NOTE | 2024-08-24 08:14 | PC.NURSE ---
[facility] 0[facility] 0700.
[2024-08-24 08:35] VITALS: BP 110/77; PULSE 82; RESP 20; TEMP 36.7; O2SAT 98
== END 2024-08-24 12:45 | disposition home or self-care (01) | DRG 540 ==
LOC: S4SX 23:24 → S4NX 08-22 02:43
PROVIDERS: Admitting Provider Nurse Practitioner Women's Health; Visit Provider Student in an Organized Health Care Education/Training Program
PROC: 10D00Z1 Extraction of Products of Conception, Low, Open Approach (ICD-10-PCS; CPT 59514; principal; 2024-08-22 02:30)
DX: O24.425 Gestational diabetes mellitus in childbirth, controlled by oral hypoglycemic drugs (principal); O76 Abnormality in fetal heart rate and rhythm complicating labor and delivery; Z37.0 Single live birth; Z3A.37 37 weeks gestation of pregnancy; O69.81X0 Labor and delivery complicated by cord around neck, without compression, not applicable or unspecified; O69.82X0 Labor and delivery complicated by other cord entanglement, without compression, not applicable or unspecified; O36.5930 Maternal care for other known or suspected poor fetal growth, third trimester, not applicable or unspecified
CPT/HCPCS: 36415; 59409; 76805; 76819; 85025; 86780; 86850; 86900; 86901; 94762; A4649; J0689; J1200; J1885; J2250; J2371; J2590; J2704; J2795; J3010; J3105; J3490; J7120; A9270